=== PATIENT | female | born 1955 | race Caucasian/White ===

== ENCOUNTER → 2017-06-23 | Day surgery (SDC) | payer MEDICARE, SELFPAY | PROVIDERS: Family Provider Family Medicine; Visit Provider Nurse Anesthetist, Certified Registered | DX: M51.16 Intervertebral disc disorders with radiculopathy, lumbar region (principal) | CPT/HCPCS: 62323; 62322; J1030; Q9966 ==

== ENCOUNTER 2023-01-13 07:03 | Day surgery (SDC) | payer MEDICARE, SELFPAY ==
--- NOTE | 2023-01-12 14:46 | SUR.PREOP ---
Pharmacy [facility] Chiquita called r/t patients allergy to prednisone and the eye drop order for Tobradex conflict. I called [facility] in [place] spoke with Dr Gan and he okayed the use of this steroid stating that people with allergy to prednisone do not have issues with this eye drop.
[2023-01-13] VITALS (7 sets, daily range): BP systolic 138–172; BP diastolic 56–90; PULSE 62–71; RESP 16–20; TEMP 36.1–36.4; O2SAT 100; BMI 31.4
[2023-01-13 07:30] LABS: POC Glucose,Bedside 197 (70-110)
--- NOTE | 2023-01-13 08:19 | SUR.OPER ---
Verified w/ Dr. Richards that pt has known allergy to prednisone. MD states that pharmacy was spoken and that it was okay to administer tobra/dex eye drop. OR staff made aware as well.
== END 2023-01-13 08:35 | disposition home or self-care (01) ==
PROVIDERS: PCP Family Medicine; Visit Provider Ophthalmology
DX: E11.36 Type 2 diabetes mellitus with diabetic cataract (principal); H25.9 Unspecified age-related cataract
CPT/HCPCS: 66984; 82962; V2632

== ENCOUNTER 2023-01-27 07:00 | Day surgery (SDC) | payer MEDICARE, SELFPAY ==
[2023-01-27] VITALS (7 sets, daily range): BP systolic 148–169; BP diastolic 61–81; PULSE 66–79; RESP 15–18; TEMP 36–36.4; O2SAT 99–100; BMI 31.4
[2023-01-27 07:36] LABS: POC Glucose,Bedside 183 (70-110)
== END 2023-01-27 08:15 | disposition home or self-care (01) ==
PROVIDERS: PCP Family Medicine; Visit Provider Ophthalmology
DX: E11.36 Type 2 diabetes mellitus with diabetic cataract (principal); H25.9 Unspecified age-related cataract
CPT/HCPCS: 66984; 82962; V2632